=== PATIENT | female | born 1945 | race African-American/Black ===

== ENCOUNTER 2019-02-06 10:56 | Inpatient (IN) | payer OTHER, MEDICARE ==
[2019-02-06] VITALS (9 sets, daily range): BP systolic 134–161; BP diastolic 62–76
[~2019-02-06] VITALS: Ht 170.2 cm; Wt 78.5 kg
--- NOTE | 2019-02-06 10:56 | NUR ---
PT BIB EMS TO BED 8
[2019-02-06] MEDS ORDERED: ALBUTEROL 0.083% 2.5 MG/3 ML NEBU INH ONE (11:00)
[2019-02-06] MEDS ORDERED: ALBUTEROL SULFATE/IPRATROPIU 3 ML SOL IH ONE (11:00)
--- NOTE | 2019-02-06 11:20 | NUR ---
ABG DRAWN ON ROOM AIR. RESULTS GIVEN TO MD MCKEON. PT CURRENTLY ON BREATHING TREATMENT. WILL CONTINUE TO MONITOR.
--- NOTE | 2019-02-06 11:39 | NUR ---
73 YO F BIBA FOR SOB. WAS BEING TRANSFERRED FROM [facility] TO [place] AND PT BECAME UNRESPONSIVE WITH LABORED BREATHING. PT WAS BEING GIVEN O2 VIA NON REBREATHER. PT ONLY ABLE TO ANSWER IN SHORT ONE WORD PHRASES. CONNECTED TO THE MONITOR FOR CONTINOUS MONITORING. BREATHING TREATMENT ADMINISTERED BY RT UPON PT'S ARRIVAL TO ED. SIDERAILS UP X2 FOR SAFETY. WILL CONTINUE TO MONITOR CLOSELY.
[2019-02-06] MEDS ORDERED: VANCOMYCIN 1,000 MG in DEXTROSE 5% 250 ML IV ONE (11:40)
[2019-02-06] MEDS ORDERED: PIPERACILLIN/TAZOBACTAM 4.5 GM in DEXTROSE 5% 100 ML IV ONE (11:40)
--- NOTE | 2019-02-06 12:08 | NUR ---
PT ON BIPAP PER MD MCKEON ORDER. SETTINGS CHARTED. PT IS QUIET. BIPAP CONNECTED TO RED OUTLET. ALARMS AUDIBLE. PROTECTIVE GEL IS USED UNDER MASK FOR SKIN PROTECTION. WILL CONTINUE TO MONITOR.
[2019-02-06 12:11] LABS: BASOPHILS % (AUTO) 0.4 % (0.0-2.0); EOSINOPHILS # (AUTO) 0.1 K/uL (0-0.4); EOSINOPHILS % (AUTO) 0.4 % (0.0-4.0); HEMATOCRIT 25.6 % (36-48); HEMOGLOBIN 8.1 g/dL (12.0-16.0); LYMPHOCYTES % (AUTO) 7.8 % (20.5-51.1); MEAN CORPUSCULAR HEMOGLOBIN 26 pg (27-31); MEAN CORPUSCULAR HGB CONC 32 g/dL (33-37); MEAN CORPUSCULAR VOLUME 80.9 fL (80-94); MONOCYTES # (AUTO) 0.6 K/uL (0.8-1.0); MONOCYTES % (AUTO) 4.4 % (1.7-9.3); NEUTROPHILS # (AUTO) 10.9 K/uL (1.8-7.7); PLATELET COUNT (AUTO) 312 K/uL (140-450); RED BLOOD CELL COUNT(AUTO) 3.16 MIL/uL (4.20-5.40); RED CELL DISTRIBUTION WIDTH 19.7 % (11.6-13.7); WHITE BLOOD COUNT (AUTO) 12.5 K/uL (4.8-10.8)
[2019-02-06] MEDS ORDERED: PIPERACILLIN/TAZOBACTAM 2.25 GM VIAL IV ONE (12:23)
--- NOTE | 2019-02-06 12:34 | NUR ---
ZOZYN ABX INFUSING ORDERED BY .
[2019-02-06 12:39] LABS: PROTHROMBIN TIME 40.4 secs (10.8-13.4)
--- NOTE | 2019-02-06 12:40 | NUR ---
CRITICAL LABS RECEIVED: PT 40.4, INR 4.5, PTT 37.[address] REPORT[address] TO [address] MCKEON. TO SEE PT.
[2019-02-06 12:41] LABS: ANION GAP 14.5 (8-16); CARBON DIOXIDE 28.4 mmol/L (21-32); CHLORIDE 98 mmol/L (98-107); CREATININE 1.1 mg/dL (0.6-1.3); GLUCOSE 259 mg/dL (74-106); POTASSIUM 4.9 mmol/L (3.5-5.1); SODIUM SERUM 136 mmol/L (136-145); UREA NITROGEN, BLOOD 42 mg/dL (7-18)
[2019-02-06 12:47] LABS: ALBUMIN 2.9 g/dL (3.4-5.0); ASPARTATE AMINOTRANSFERASE 33 U/L (15-37); TOTAL BILIRUBIN 0.8 mg/dL (0.0-1.0)
--- NOTE | 2019-02-06 13:21 | NUR ---
PER MD MCKEON TO TITRATE FIO TOLERATED, WILL FOLLOW WITH ORDER. DECREASED FIO FROM 100% TO 80% NOW AT 60%
[2019-02-06] MEDS ORDERED: VANCOMYCIN 1,000 MG VIAL ONE (13:50)
[2019-02-06] MEDS ORDERED: ONDANSETRON 4 MG/2 ML VIAL IM/IVP PRN (14:15)
[2019-02-06] MEDS ORDERED: ACETAMINOPHEN 325 MG TAB PO PRN (14:15)
[2019-02-06] MEDS ORDERED: HYDROcodone/APAP 7.5/325 MG 1 TAB PO PRN (14:15)
[2019-02-06] MEDS ORDERED: DOCUSATE SODIUM 100 MG GELCAP PO PRN (14:15)
[2019-02-06 15:17] LABS: APPEARANCE,URINE CLEAR (CLEAR); BILIRUBIN,URINE NEGATIVE (NEGATIVE); BLOOD, URINE NEGATIVE (NEGATIVE); COLOR,URINE YELLOW (YELLOW); LEUKOCYTE ESTERASE ,URINE NEGATIVE (NEGATIVE); NITRITE, URINE NEGATIVE (NEGATIVE); UGLUCOSE NEGATIVE (NEGATIVE)
[2019-02-06 15:26] LABS: BARBITURATE, URINE NEG. ng/ml (NEG <=200); BENZODIAZEPINE, URINE NEG. ng/mL (NEG <=200); CANNABINOID, URINE NEG. ng/mL (NEG <=50); COCAINE, URINE NEG. ng/mL (NEG <=300); OPIATE, URINE NEG. ng/mL (NEG <=2000); PHENCYCLIDINE SCREEN,URINE NEG. ng/mL (NEG <=25)
[2019-02-06] MEDS ORDERED: ATOR40TA PO (15:49)
[2019-02-06] MEDS ORDERED: ALBU2.5V IH (15:49)
[2019-02-06] MEDS ORDERED: BISA-213 RC (15:49)
[2019-02-06] MEDS ORDERED: AMLO5TAB PO (15:49)
[2019-02-06] MEDS ORDERED: ACET-2619 PO (15:49)
[2019-02-06] MEDS ORDERED: LATA7.5D OP (15:49)
[2019-02-06] MEDS ORDERED: SOTA80TA PO (15:49)
[2019-02-06] MEDS ORDERED: FURO-572 PO (15:49)
[2019-02-06] MEDS ORDERED: NITR0.4T2 SL (15:49)
[2019-02-06] MEDS ORDERED: LISI10TA11 PO (15:49)
[2019-02-06] MEDS ORDERED: ATRN INH (15:49)
[2019-02-06] MEDS ORDERED: DOCU-299 PO (15:49)
[2019-02-06] MEDS ORDERED: HYDR100T79 PO (15:49)
[2019-02-06] MEDS ORDERED: LID5T TP (15:49)
[2019-02-06] MEDS ORDERED: WARF-18 PO (15:49)
[2019-02-06] MEDS ORDERED: WARF2.5T77 PO (15:49)
[2019-02-06] MEDS ORDERED: MAGN400S60 PO (15:49)
--- NOTE | 2019-02-06 16:00 | NUR ---
RECEIVED PATIENT VIA GURNEY, TRANSFERRED TO ICU BED AND HOOKED TO MONITORS ON BIPAP FIO2 60%, SO2 95%, RR 24 CPM, ALERT ORIENTED TO PERSON, PLACE, TIME, SITUATION. SINUS BRADYCARDIA IN THE MONITOR, SOFT ABDOMEN, SKIN INTACT, GAUGE 24 AT RIGHT THUMB-SITE ASYMPTOMATIC
--- NOTE | 2019-02-06 16:08 | NUR ---
TRANSFERRED PT FROM ED TO ICU WITH NO INCIDENT. PT CONTINUES TO BE ON BIPAP.SETTINGS CHARTED. BIPAP CONNECTED TO RED OUTLET. ALARMS AUDIBLE. MASK MEDIUM WITH PROTECTIVE GEL. WILL CONTINUE TO MONITOR.
--- NOTE | 2019-02-06 16:27 | NUR ---
PT was transferred to ICU Bed 1 report given to YAEL Bernstein. Transferred care at 1558. pt was in stable condition.
--- NOTE | 2019-02-06 16:40 | NUR ---
DR. HOWELL HERE AND EXPLAINED TO THE PATIENT AND HER DAUGHTER KEYANA THAT PICC LINE NURSE WILL INSERT MIDLINE ON HER. DR. HOWELL EXPLAINED THE RISKS AND BENEFITS. DR. HOWELL AWARE OF TODAY'S LABORATORY VALUES. PATIENT AND DAUGHTER CONSENTED TO SAID PROCEDURE
--- NOTE | 2019-02-06 16:45 | NUR ---
ICU ISMAEL WYATT AND PICC YAEL PACHECO REVIEWED THE SIGNED CONSENT FOR MIDLINE
[2019-02-06] MEDS ORDERED: ALBUTEROL SULFATE/IPRATROPIU 3 ML SOL IH PRN (17:05)
[2019-02-06] MEDS ORDERED: FUROSEMIDE 40 MG/4 ML VIAL IVP SCH (17:15)
[2019-02-06] MEDS: DEXT 5% /NACL 0.9% 1,000 ML IV SCH (17:26)
[2019-02-06] MEDS: hydrALAZINE 10 MG TAB PO SCH (17:27)
[2019-02-06 17:28] LABS: FREE T4 (FREE THYROXINE) 1.38 ng/dL (0.76-1.46); MAGNESIUM 2.3 mg/dL (1.8-2.4); PHOSPHORUS 4.8 mg/dL (2.5-4.9); THYROID STIMULATING HORMONE 2.93 uIU/mL (0.34-3.74)
--- NOTE | 2019-02-06 17:28 | NUR ---
IRIS SCORE PER PATIENT'S DAUGHTER KEYANA. PATIENT WALKS WITH WALKER PRIOR TO COMING HERE
--- NOTE | 2019-02-06 17:44 | NUR ---
MIDLINE INSERTION ONGOING
--- NOTE | 2019-02-06 18:04 | NUR ---
PER JUNIOR CONLEY OK TO USE MIDLINE
--- NOTE | 2019-02-06 18:46 | NUR ---
CALLED [facility] AND SPOKE TO PATIENT'S PREVIOUS RN BLESSING AND ACCORDING TO HER THEY DON'T HAVE A RECORD OF PATIENT'S FLU AND PNEUMONIA SHOT. PATIENT AND HER DAUGHTER BOTH CANNOT REMEMBER IT
[2019-02-06] MEDS: ALBUTEROL SULFATE/IPRATROPIU 3 ML SOL IH SCH (18:55)
--- NOTE | 2019-02-06 19:20 | NUR ---
RECEIVED REPORT FROM AM SHIFT. PT AOX2. FOLLOWS SIMPLE COMMANDS. RESPONDS TO VERBAL AND TACTILE STIMULI.EYES TRACKING. ABLE TO MAKE NEEDS KNOWN. LUNG SOUNDS CLEAR BILAT. ON BIPAP 12/6 FIO2 60. NO COUGH. SB ON MONITOR. DENIES CHEST PAIN. BOWEL SOUNDS ACTIVE X 4 QUADRANTS. ABD SOFT NONDISTENDED. NPO EXCEPT MEDS AT THIS TIME. CONTINENT OF URINE. URINE CLEAR YELLOW NO FOUL ODOR. GENERALIZED WEAKNESS NOTED. SKIN INTACT. IV SITE R THUMB 24G. DRESSING INTACT. RUE MIDLINE DRESSING INTACT. PATENT. HOB 30. BED IN LOWEST POSITION. SR UP X4. WILL CONTINUE TO MONITOR.
--- NOTE | 2019-02-06 19:26 | NUR ---
REPORT GIVEN TO NIGHT RN ENDORSED PAIR OF GLASSES AND UPPER DENTURES
[2019-02-06] MEDS: FUROSEMIDE 20 MG/2 ML VIAL IVP SCH (20:36)
[2019-02-06] MEDS: PIPER/TAZO 3.375GM/D5W PREMIX 50 ML IV SCH (20:36)
[2019-02-06] MEDS: LATANOPROST 0.005% OP 2.5 ML BTL BOTH EYES SCH (20:36)
[2019-02-06] MEDS: ATORVASTATIN 20 MG TAB PO SCH (20:36)
[2019-02-06] MEDS ORDERED: SOTALOL 80 MG TAB PO SCH (21:00)
--- NOTE | 2019-02-06 21:45 | NUR ---
PT AGITATED. RESTLESS. PULLING OFF BIPAP TUBE. GIVEN BENADRYL IVP AT THIS TIME
[2019-02-06] MEDS ORDERED: diphenhydrAMINE 50 MG/ML VIAL IVP SCH (22:00)
--- NOTE | 2019-02-06 22:03 | NUR ---
PT ON BIPAP. SETTINGS OF 12/6, 12, 60%. BIPAP CONNECTED TO RED OUTLET. ALARMS AUDIBLE. MASK MEDIUM WITH PROTECTIVE GEL. NO DISTRESS OR SOB NOTED AT THIS TIME.
[2019-02-06] MEDS ORDERED: LORazepam 2 MG/ML VIAL IVP ONE (23:10)
--- NOTE | 2019-02-06 23:18 | NUR ---
PT AGITATED AT THIS TIME. PULLING OUT TUBE. PULLED OUT PERIPHERAL IV 24G ON THUMB. CANNULA INTACT. WILL ADMINISTER ATIVAN 1MG IVP.
[2019-02-07] VITALS (33 sets, daily range): BP systolic 9–156; BP diastolic 43–144
--- NOTE | 2019-02-07 01:15 | NUR ---
PT RESTLESS AT THIS TIME PULLING ON TUBES AND UNDRESSING. PT CLEANED AT REPOSITIONED. WILL CONTINUE TO MONITOR.
--- NOTE | 2019-02-07 03:14 | NUR ---
PT RESTLESS AT THIS TIME. REORIENTED PT TO LOCATION.
--- NOTE | 2019-02-07 04:11 | NUR ---
AM CARE PROVIDED AT THIS TIME
[2019-02-07] MEDS: PIPER/TAZO 3.375GM/D5W PREMIX 50 ML IV SCH ×3 (04:38→20:11)
[2019-02-07] MEDS: LORazepam 2 MG/ML VIAL IVP PRN ×2 (04:38→11:32)
--- NOTE | 2019-02-07 04:38 | NUR ---
LAB AT BEDSIDE AT THIS TIME FOR AM CARE
[2019-02-07] MEDS ORDERED: LORazepam 2 MG/ML VIAL ONE (04:40)
--- NOTE | 2019-02-07 06:19 | NUR ---
DR. HOWELL AT BEDSIDE AT THIS TIME
[2019-02-07 06:36] LABS: BASOPHILS % (AUTO) 0.4 % (0.0-2.0); EOSINOPHILS % (AUTO) 0.2 % (0.0-4.0); HEMATOCRIT 25.5 % (36-48); HEMOGLOBIN 8.2 g/dL (12.0-16.0); LYMPHOCYTES % (AUTO) 10.7 % (20.5-51.1); MEAN CORPUSCULAR HEMOGLOBIN 26 pg (27-31); MEAN CORPUSCULAR HGB CONC 32 g/dL (33-37); MEAN CORPUSCULAR VOLUME 80.7 fL (80-94); MONOCYTES # (AUTO) 0.5 K/uL (0.8-1.0); MONOCYTES % (AUTO) 5.7 % (1.7-9.3); NEUTROPHILS # (AUTO) 7.5 K/uL (1.8-7.7); PLATELET COUNT (AUTO) 295 K/uL (140-450); RED BLOOD CELL COUNT(AUTO) 3.16 MIL/uL (4.20-5.40); RED CELL DISTRIBUTION WIDTH 19.8 % (11.6-13.7); WHITE BLOOD COUNT (AUTO) 9.1 K/uL (4.8-10.8)
[2019-02-07 06:37] LABS: ANION GAP 11.9 (8-16); CARBON DIOXIDE 30.2 mmol/L (21-32); CHLORIDE 103 mmol/L (98-107); GLUCOSE 195 mg/dL (74-106); POTASSIUM 4.1 mmol/L (3.5-5.1); SODIUM SERUM 141 mmol/L (136-145); UREA NITROGEN, BLOOD 33 mg/dL (7-18)
[2019-02-07 06:43] LABS: PROTHROMBIN TIME 53.5 secs (10.8-13.4)
[2019-02-07 06:45] LABS: MAGNESIUM 2.1 mg/dL (1.8-2.4); PHOSPHORUS 4.1 mg/dL (2.5-4.9)
--- NOTE | 2019-02-07 07:08 | NUR ---
ENDORSED CARE TO INCOMING SHIFT FOR CONTINUITY OF CARE.
--- NOTE | 2019-02-07 07:25 | NUR ---
RECEIVED REPORT FROM PM SHIFT. PT AOX1. DOES NOT FOLLOW COMMANDS. UNABLE TO MAKE NEEDS KNOWN. RESPONDS TO VERBAL AND TACTILE STIMULI. PERRLA 5MM RIGHT PUPIL, 5MM LEFT PUPIL. EYES TRACKING. LUNG SOUNDS EQUAL AND CLEAR BILAT. ON BIPAP 10/4 FIO2 40. NO COUGH. NSR ON MONITOR. PALPABLE PULSES, ALL EXTREMITIES. BOWEL SOUNDS HYPOACTIVE X 4 QUADRANTS. ABD SOFT NONDISTENDED. NPO EXCEPT MEDS AT THIS TIME, REQUIRES CRUSHING. INCONTINENT OF URINE. URINE CLEAR YELLOW NO FOUL ODOR. FECAL SMEAR NOTED. GENERALIZED WEAKNESS NOTED. SKIN INTACT. DRY AND WARM TO TOUCH. LIPS DRY, CRACKED. RUE MIDLINE DRESSING INTACT, PATENT, FLUSHED. HOB 30. BED IN LOWEST POSITION. WILL CONTINUE TO MONITOR.
[2019-02-07] MEDS: ALBUTEROL SULFATE/IPRATROPIU 3 ML SOL IH SCH ×4 (08:03→23:07)
--- NOTE | 2019-02-07 08:03 | NUR ---
RCV'D PT ON BIPAP WITH CHARTED SETTINGS. PT IS ASLEEP COMFORTABLY. NO SOB OR DISTRESS NOTED. BIPAP CONNECTED TO RED OUTLET. ALARMS AUDIBLE. AMBU BAG AT BEDSIDE. WILL CONTINUE TO MONITOR.
--- NOTE | 2019-02-07 08:08 | NUR ---
PATIENT HAS BEEN SCREENED AND CATEGORIZED HIGH NUTRITION RISK. PATIENT WILL BE SEEN WITHIN 1-2 DAYS OF ADMISSION. 02/07/19-02/08/[address]
[2019-02-07 08:27] LABS: T4 (THYROXINE) 8.7 ug/dL (4.5-12.0)
[2019-02-07] MEDS: FUROSEMIDE 20 MG/2 ML VIAL IVP SCH (08:59)
[2019-02-07] MEDS ORDERED: FUROSEMIDE 20 MG TAB PO SCH (09:00)
--- NOTE | 2019-02-07 09:00 | NUR ---
GAVE MEDICATIONS PRESCRIBED, MEDICATIONS REQUIRED CRUSHING WITH APPLESAUCE FOR ADMINISTRATION Addendum: 02/07/19 at 1114 by Ernie Sinclair RN PT TOLERATED WELL.
[2019-02-07] MEDS: SOTALOL 80 MG TAB PO SCH ×2 (09:01→21:00)
[2019-02-07] MEDS: LISINOPRIL 10 MG TAB PO SCH (09:02)
[2019-02-07] MEDS: amLODIPine 5 MG TAB PO SCH (09:02)
[2019-02-07] MEDS: hydrALAZINE 10 MG TAB PO SCH ×4 (09:03→16:40)
--- NOTE | 2019-02-07 09:20 | NUR ---
DR. HOWELL MADE AWARE THAT MEDICATIONS REQUIRED CRUSHING WITH APPLESAUCE FOR ADMINISTRATION
--- NOTE | 2019-02-07 09:54 | NUR ---
DECREASED PT'S FIO2 TO 40% SPO2 96% WILL CONTINUE TO MONITOR.
--- NOTE | 2019-02-07 10:00 | NUR ---
[facility]O UNDERWEAR WELTER CALL TO CHECK OUT PT. CONDITION PT STILL ON BIPAP FIO2 AT 40% and restless and confuse SHE SAID PT. STILL UNABLE TO TRANSFER AT THIS TIME.
--- NOTE | 2019-02-07 11:05 | NUR ---
DR. HOWELL AT BEDSIDE WITH DAUGHTER DISCUSSING PT'S STATUS AND CONDITION.
[2019-02-07] MEDS: DEXT 5% /NACL 0.9% 1,000 ML IV SCH (11:41)
--- NOTE | 2019-02-07 11:42 | NUR ---
BIPAP CHECK. DAUGHTER AT BEDSIDE. PT IS IRRITABLE. RN AWARE AND AT BEDSIDE. NO DISTRESS NOTED. DECREASED FIO2 TO 30%. PT'S SPO2 IS 98% . RN AWARE. WILL CONTINUE TO MONITOR.
--- NOTE | 2019-02-07 13:06 | NUR ---
02/07/19 RD INITIAL ASSESSMENT COMPLETED PLEASE REFER TO NUTRITION ASSESSMENT UNDER CARE ACTIVITY FOR ESTIMATED NUTRITIONAL NEEDS. 1. CONTINUE NPO MEDICALLY NECESSARY 2. RECOMMEND SWALLOW EVALUATION 3. RECOMMEND CARDIAC DIET WITH TEXTURE AND LIQUID CONSISTENCY SUGGESTED BY SWALLOW EVALUATION 4. RD TO FOLLOW-UP 2-3 DAYS, HIGH RISK GRIS CARRERO, ARABELLA
--- NOTE | 2019-02-07 13:30 | NUR ---
PATIENT INCONTINENT. PATIENT CLEANED AND REPOSITIONED. PT TOLERATED WELL.
--- NOTE | 2019-02-07 13:33 | NUR ---
BIPAP CHECK. PT TOLERATING WELL. PT ASLEEP COMFORTABLY. DAUGHTER AT BEDSIDE. HHN TX GIVEN WITH NO ADVERSE REACTION. WILL CONTINUE TO MONITOR.
--- NOTE | 2019-02-07 13:45 | NUR ---
DR. RODRIGEZ AT BEDSIDE CHECKING ON PT. DR. RODRIGEZ SPEAKING WITH FAMILY MEMBER ABOUT PT'S PROGRESS. Addendum: 02/07/19 at 1555 by Ernie Sinclair RN WRONG TIME, CORRECT TIME IS 1545
--- NOTE | 2019-02-07 14:15 | NUR ---
PATIENT ATTEMPTING TO GET OUT OF BED. REORIENTED AND REPOSITIONED. SAFETY PRECAUTIONS IN PLACE.
--- NOTE | 2019-02-07 14:55 | NUR ---
ECHOCARDIOGRAM WIRE CUTTER AT BEDSIDE. PT'S VITAL SIGNS ARE STABLE. NO SIGNS OF DISTRESS. WILL CONTINUE TO MONITOR.
--- NOTE | 2019-02-07 15:03 | NUR ---
LATE ENTRY. CALLED [facility], . WAS TOLD THAT THE CM FOR TODAY WAS ANNALISA. I ASKED THAT SHE CALL ME BACK, NO CALL BACK. I SPOKE WITH DR. HOWELL. PATIENT NOT STABLE FOR TRANSFER TODAY.
--- NOTE | 2019-02-07 16:01 | NUR ---
DR RODRIGEZ AT BEDSIDE. ORDERED HIGH FLOW. HIGH FLOW STARTED. SETTINGS PER MD RODRIGEZ FLOW 20 FIO2 35%.
--- NOTE | 2019-02-07 16:32 | NUR ---
ABG DRAWN AND RESULTS GIVEN TO MD RODRIGEZ AT BEDSIDE. PER MD RODRIGEZ INCREASE FLOW TO 50 FIO2 TO 50%. CHANGES DONE.
--- NOTE | 2019-02-07 16:40 | NUR ---
PT IS LETHARGIC AT THIS TIME. UNABLE TO SWALLOW CRUSHED MEDS MIXED WITH APPLE SAUCE. DR. RODRIGEZ MADE AWARE. PER DR. RODRIGEZ, DO NOT GIVE ANY PO MEDS AT THIS TIME.
--- NOTE | 2019-02-07 16:50 | NUR ---
PT LETHARGIC. MD RODRIGEZ AT BEDSIDE.
--- NOTE | 2019-02-07 17:00 | NUR ---
ETOMIDATE [address] RODRIGEZ'S ORDER.
--- NOTE | 2019-02-07 17:00 | NUR ---
INTUBATED PT WITH 7.5 ETT AT 24 CM AT TEETH. CONFIRMED BY BREATH SOUNDS BY MD RODRIGEZ AND COLOR CHANGE. VENT SETTINGS AC 16,450,+5,100%. WILL TITRATE FOP2 TOLERATED
--- NOTE | 2019-02-07 17:02 | NUR ---
PT INTUBATED AT BEDSIDE BY DR. RODRIGEZ.
--- NOTE | 2019-02-07 17:02 | NUR ---
ROCURONIUM 20MG GIVEN PRIOR TO INTUBATION PER DR. RODRIGEZ'S ORDER.
[2019-02-07] MEDS ORDERED: PHYTONADIONE 10 MG/ML AMP SUBQ SCH (17:15)
--- NOTE | 2019-02-07 17:20 | NUR ---
YIN CATHETER AND OGT INSERTED. PT TOLERATED WELL.
--- NOTE | 2019-02-07 17:45 | NUR ---
ANNALISA FROM [facility] [phone] [facility] CALL TO CHECK ON PATIENT.INFORM HER THAT PT. HAS BEEN INTUBATED BY DR. RODRIGEZ , HAVE HER TALK TO DR. RODRIGEZ AND BOTH AGREE THAT THE PATIENT IS NOT STABLE TO BE TRANSFER TO DAY.
[2019-02-07] MEDS ORDERED: MIDAZOLAM 2 MG/2 ML VIAL IV SCH (18:00)
--- NOTE | 2019-02-07 18:14 | NUR ---
BRONCHOSCOPY DONE BY MD RODRIGEZ AT BEDSIDE. RT BLANCA AT BEDSIDE WELL. SPUTUM SAMPLE COLLECTED AND SENT TO LAB. PT ON VENTILATOR INTUBATED WITH 7.5 AT 23 CM AT LIP. XRAY AT BEDSIDE. VENT CONNECTED TO RED OUTLET. ALARMS AUDIBLE. AMBU BAG AT BEDSIDE. NO SOB OR DISTRESS NOTED AFTER INTUBATION. PT IS COMFORTABLE.
--- NOTE | 2019-02-07 18:15 | NUR ---
CHEST X-RAY AND KUB DONE AT BEDSIDE. VSS. WILL CONTINUE TO MONITOR.
--- NOTE | 2019-02-07 18:17 | NUR ---
VERIFIED PT'S ALLERGIES TO PT'S DAUGHTERS. PER DAUGHTERSKEYANA AND AURY AT BEDSIDE, PT DOES NOT HAVE ANY ALLERGIES.
[2019-02-07] MEDS: MIDAZOLAM MDV 50 MG in NACL 0.9% 40 ML IV PRN (18:22)
[2019-02-07] MEDS: fentaNYL 1 MG in NACL 0.9% 80 ML IV PRN (18:29)
--- NOTE | 2019-02-07 18:50 | NUR ---
CONSENT OBTAINED FROM DAUGHTERS KEYANA AND AURY FOR SOFT WRIST RESTRAINT USE.
--- NOTE | 2019-02-07 19:09 | NUR ---
OBTAINED REPORT FROM AM SHIFT. ASSUMED CONTINUITY OF CARE. PT. AFEBRILE. SEDATED. RASS -3. MODERATE SEDATION. RESPONDS TO TACTILE STIMULI. ETT TO VENT 23 @ LIP. VENT SETTINGS VC FIO2 50 VT 450 RATE 16 PEEP 5. ON FENTANYL 10MCG AND VERSED 2MG DRIP. AFIB ON MONITOR. NO EDEMA NOTED. BOWEL SOUNDS ACTIVE X4 QUADRANTS OGT IN PLACE. PATENT, AUSCULTATED. NO RESIDUAL NOTED. YIN CATHETER IN PLACE. URINE CLEAR YELLOW. ON BILATERAL SOFT WRIST RESTRAINTS. MIDLINE TO MARY. PATENT INTACT. BED IN LOWEST POSITION. HOB 30. WILL CONTINUE TO MONITOR. FAMILY AT BEDSIDE
--- NOTE | 2019-02-07 19:16 | NUR ---
1900 ET TUBE PULLED BACK 2.5 CM TO LIP LINE 23
--- NOTE | 2019-02-07 19:19 | NUR ---
REPORT GIVEN TO MIDDLE SCHOOL COMBINATION TEACHER RN FOR CONTINUITY OF CARE. NO SIGNS OF DISTRESS NOTED AT THIS TIME.
--- NOTE | 2019-02-07 19:57 | NUR ---
POST ABG. LOWERED FIO2 TO 50%
[2019-02-07] MEDS: LATANOPROST 0.005% OP 2.5 ML BTL BOTH EYES SCH (20:11)
[2019-02-07] MEDS: BUDESONIDE 0.25 MG/2 ML NEBU INH SCH (20:18)
[2019-02-07] MEDS: ATORVASTATIN 20 MG TAB PO SCH (21:00)
--- NOTE | 2019-02-07 21:24 | NUR ---
1919 SPUTUM CULTURE UPTAINED AND TAKEN TO LAB
--- NOTE | 2019-02-07 21:48 | NUR ---
RADIOLOGY AT BEDSIDE FOR CXR AND KUB
--- NOTE | 2019-02-07 22:16 | NUR ---
RT AT BEDSIDE AT THIS TIME.
[2019-02-08] VITALS (104 sets, daily range): BP systolic 89–142; BP diastolic 47–94
--- NOTE | 2019-02-08 01:36 | NUR ---
LOWERED FIO2 TO 40%
--- NOTE | 2019-02-08 02:15 | NUR ---
PT REMOVED FROM RESTRAINTS AT THIS TIME. WILL REAPPLY IF NECESSARY.
[2019-02-08] MEDS: MIDAZOLAM MDV 50 MG in NACL 0.9% 40 ML IV PRN ×2 (02:16→21:20)
[2019-02-08] MEDS: ALBUTEROL SULFATE/IPRATROPIU 3 ML SOL IH SCH ×6 (03:05→23:32)
--- NOTE | 2019-02-08 03:14 | NUR ---
OGT MOVED. REINSERTED NEW OG TUBE.
--- NOTE | 2019-02-08 03:14 | NUR ---
LOWERED FIO2 TO 30% SATS 99%
--- NOTE | 2019-02-08 03:41 | NUR ---
NOTIFIED DR. ANGLIN REGARDING XRAY FOR OGT PLACEMENT
[2019-02-08] MEDS: PIPER/TAZO 3.375GM/D5W PREMIX 50 ML IV SCH ×3 (04:24→21:03)
--- NOTE | 2019-02-08 04:53 | NUR ---
AM CARE PROVIDED AT THIS TIME. NO SIGNS ACUTE DISTRESS NOTED. WILL CONTINUE TO MONITOR.
[2019-02-08] MEDS: BUDESONIDE 0.25 MG/2 ML NEBU INH SCH ×2 (06:55→18:36)
--- NOTE | 2019-02-08 07:02 | NUR ---
RECEIVED INTUBATED PT WITH A 7.5 ETT SECURED @22 TEETH/GUMS ON VENT. SETTINGS AC 16, VT 450, PEEP 5 AND FIO2 30%. ETT IS SECURE WITH ANCHOR FAST DEVICE, AIRWAY IS PATENT. PT SEDATED AT THIS TIME BUT HAS ACTIVE GAG REFLEX. PT SUCTIONED OBTAINED BLOOD TINGED/YELLOW SECRETIONS. VENT IS PLUGGED INTO A RED OUTLET WITH ALARMS ON AND FUNCTIONING. THERE IS NO BITING OR KINKING OF ETT. WILL CONTINUE TO MONITOR.
[2019-02-08 07:07] LABS: BASOPHILS % (AUTO) 0.7 % (0.0-2.0); EOSINOPHILS # (AUTO) 0.1 K/uL (0-0.4); EOSINOPHILS % (AUTO) 1.3 % (0.0-4.0); HEMATOCRIT 22.9 % (36-48); HEMOGLOBIN 7.3 g/dL (12.0-16.0); LYMPHOCYTES # (AUTO) 1.4 K/uL (2.5-16.5); MEAN CORPUSCULAR HEMOGLOBIN 26 pg (27-31); MEAN CORPUSCULAR HGB CONC 32 g/dL (33-37); MEAN CORPUSCULAR VOLUME 81.7 fL (80-94); MONOCYTES # (AUTO) 0.3 K/uL (0.8-1.0); MONOCYTES % (AUTO) 7.3 % (1.7-9.3); NEUTROPHILS % (AUTO) 61.7 % (42.2-75.2); PLATELET COUNT (AUTO) 235 K/uL (140-450); RED CELL DISTRIBUTION WIDTH 20.1 % (11.6-13.7); WHITE BLOOD COUNT (AUTO) 4.8 K/uL (4.8-10.8)
--- NOTE | 2019-02-08 07:11 | NUR ---
ENDORSED CARE TO INCOMING SHIFT FOR CONTINUITY OF CARE
--- NOTE | 2019-02-08 07:25 | NUR ---
BEDSIDE REPORT RECEIVED FROM TRISTON RN FOR CONTINUITY OF CARE. PATIENT IN STABLE CONDITION. Addendum: 02/08/19 at 0911 by Migdalia Gatica RN PATIENT IS SEDATED WITH FERSED AND PROPOFOL DRIPS. ETT 7.5 AT 22CM, FIO2 30%, TV 450, RATE 16 AND PEEP 5. OGT IN PLACE WAITING FOR XRAY CONFIRMATION. FC 16FR PATENT AND INTACT TO CLEAR YELLOW URINE IN MODERATE AMOUNT. SMALL BM TO BROWN PASTY STOOLS NOTED. SKIN WARM TO TOUCH WNL, TOENAILS WNL, NO EDEMA, NO HAIR GROWTH AND +2 BILATERAL PULSES. CLEAR BILATERAL LUNG SOUNDS. MARY MIDLINE PATENT AND INTACT. CALL LIGHT WITHIN REACH AND ALL SAFETY MEASURES IN PLACE. WILL CONTINUE TO MONITOR PATIENT.
[2019-02-08 07:48] LABS: ANION GAP 11.8 (8-16); CARBON DIOXIDE 30.5 mmol/L (21-32); CHLORIDE 107 mmol/L (98-107); CREATININE 0.9 mg/dL (0.6-1.3); GLUCOSE 171 mg/dL (74-106); POTASSIUM 3.3 mmol/L (3.5-5.1); SODIUM SERUM 146 mmol/L (136-145); UREA NITROGEN, BLOOD 23 mg/dL (7-18)
--- NOTE | 2019-02-08 07:50 | NUR ---
DR LÓPEZ AND GROUP ROUNDING, UPDATED OF PATIENT'S CONDITION. MADE AWARE OF PATIENTS' TEMP OF 94.9 RECTALLY AND 95.7 TEMPORAL. VINCE CASANDRAER PLACED. WILL FOLLOW UP WITH ORDERS.
[2019-02-08 08:09] LABS: PROTHROMBIN TIME 60.1 secs (10.8-13.4)
--- NOTE | 2019-02-08 08:12 | NUR ---
DR ACE MADE AWARE OF PATIENT'S PT/INR 60.1/6.7, WILL SEE PATIENT.
[2019-02-08 08:18] LABS: MAGNESIUM 1.9 mg/dL (1.8-2.4); PHOSPHORUS 2.6 mg/dL (2.5-4.9)
--- NOTE | 2019-02-08 08:54 | NUR ---
DR. ACE MADE AWARE OF PATIENT'S H/H 7.3/22.9 AND NA/K 146/3.3. WILL FOLLOW UP WITH ORDERS
[2019-02-08] MEDS: amLODIPine 5 MG TAB PO SCH (09:00)
[2019-02-08] MEDS: hydrALAZINE 10 MG TAB PO SCH ×3 (09:00→17:00)
[2019-02-08] MEDS: LISINOPRIL 10 MG TAB PO SCH (09:00)
[2019-02-08] MEDS: SOTALOL 80 MG TAB PO SCH ×2 (09:00→20:56)
[2019-02-08] MEDS ORDERED: POTASSIUM CHLORIDE 20% 40 MEQ/15 ML UDC GT SCH (10:18)
--- NOTE | 2019-02-08 10:42 | NUR ---
SPEECH PATHOLOGY NOTE Order for bedside swallow eval received, chart reviewed. Pt remains intubated, on mech ventilation. Will hold swallow eval order at this time until approx 24 hrs POST EXTUBATION. D/w dinag automobile club information clerk. Thank you.
--- NOTE | 2019-02-08 11:15 | NUR ---
FIO2 TITRATED TO 35% PER REQUEST OF . SPO2 REMAINS ABOVE 92% ORDER REQUESTS.
--- NOTE | 2019-02-08 11:21 | NUR ---
PER DR. AEC HOLD ALL BP MEDS FOR NOW
[2019-02-08] MEDS ORDERED: POTASSIUM CHLORIDE 20% 40 MEQ/15 ML UDC ONE (12:01)
--- NOTE | 2019-02-08 15:49 | NUR ---
CORA FROM [facility] CALLED TO GET UPDATE ON PATIENT. SHE STATED WILL LET HER DOC KNOW AND WILL CALL ME BACK.
[2019-02-08] MEDS ORDERED: PUL.25N INH (16:49)
[2019-02-08] MEDS ORDERED: APR10 PO (16:49)
[2019-02-08] MEDS ORDERED: ZOS3.375PM IV (16:50)
--- NOTE | 2019-02-08 17:41 | NUR ---
PT REMAINS ON DOCUMENTED VENT SETTINGS. PT NOT IN ANY DISTRESS AT THIS TIME. VENT ALARMS REMAIN ON AND FUNCTIONING. ETT REMAINS SECURE WITH A PATENT AIRWAY.
[2019-02-08] MEDS: DEXT 5% /NACL 0.9% 1,000 ML IV SCH (18:11)
--- NOTE | 2019-02-08 18:58 | NUR ---
DR ALDEN MELO UPDATED OF PATIENT'S CONDITION. MADE AWARE OF PATIENT'S URINE OUTPUT OF 300ML, WILL CONTINUE TO MONITOR PATIENT.
--- NOTE | 2019-02-08 19:20 | NUR ---
BEDSIDE REPORT GIVEN TO NOC RN FOR CONTINUITY OF CARE. PATIENT IN STABLE CONDITION
--- NOTE | 2019-02-08 19:30 | NUR ---
RECEIVED REPORT FROM YAEL SONG. INITIAL ASSESSMENT COMPLETED. PT IS SEDATED. ETT TO VENT FIO2 35% TV 450 AC 16 PEEP 5. ATTACHED TO FIBERGLASS ROVING WINDER AND PULSE OXIMETER. OGT IN PLACE ATTACHED TO FEEDING, PATENT, INTACT. IV ACCESS MARY MIDLINE, ON FENTANYL, AND VERSED DRIP. YIN CATH IN PLACE. BED IN LOW POSITION, SAFETY MEASURE ENSURE. WILL CONTINUE TO MONITOR.
--- NOTE | 2019-02-08 20:00 | NUR ---
RESTRAINT DISCONTINUED PER DR. RUANO. WILL CONTINUE TO MONITOR.
--- NOTE | 2019-02-08 20:54 | NUR ---
PER DR. RUANO HOLD BETAPACE AT THIS TIME. HR 84, BP 129/80 RR 16 O2 SAT 100%. WILL CONTINUE TO MONITOR.
[2019-02-08] MEDS: ATORVASTATIN 20 MG TAB PO SCH (21:03)
[2019-02-08] MEDS: LATANOPROST 0.005% OP 2.5 ML BTL BOTH EYES SCH (21:18)
[2019-02-09] VITALS (106 sets, daily range): BP systolic 106–155; BP diastolic 44–100
--- NOTE | 2019-02-09 00:10 | NUR ---
NO DISTRESS NOTED. WILL CONTINUE TO MONITOR.
[2019-02-09] MEDS: ALBUTEROL SULFATE/IPRATROPIU 3 ML SOL IH SCH ×6 (03:48→22:45)
[2019-02-09] MEDS: PIPER/TAZO 3.375GM/D5W PREMIX 50 ML IV SCH ×3 (04:35→20:13)
[2019-02-09] MEDS ORDERED: PHYTONADIONE 10 MG/ML AMP SUBQ ONE (05:10)
[2019-02-09 05:47] LABS: BASOPHILS % (AUTO) 0.5 % (0.0-2.0); EOSINOPHILS # (AUTO) 0.1 K/uL (0-0.4); EOSINOPHILS % (AUTO) 1.2 % (0.0-4.0); HEMATOCRIT 25.5 % (36-48); HEMOGLOBIN 8.2 g/dL (12.0-16.0); LYMPHOCYTES # (AUTO) 1.3 K/uL (2.5-16.5); LYMPHOCYTES % (AUTO) 20.2 % (20.5-51.1); MEAN CORPUSCULAR HEMOGLOBIN 26 pg (27-31); MEAN CORPUSCULAR HGB CONC 32 g/dL (33-37); MEAN CORPUSCULAR VOLUME 81.1 fL (80-94); MONOCYTES # (AUTO) 0.4 K/uL (0.8-1.0); MONOCYTES % (AUTO) 6.1 % (1.7-9.3); NEUTROPHILS # (AUTO) 4.5 K/uL (1.8-7.7); PLATELET COUNT (AUTO) 246 K/uL (140-450); RED BLOOD CELL COUNT(AUTO) 3.15 MIL/uL (4.20-5.40); RED CELL DISTRIBUTION WIDTH 20.6 % (11.6-13.7); WHITE BLOOD COUNT (AUTO) 6.2 K/uL (4.8-10.8)
[2019-02-09] MEDS: NACL 0.45% 1,000 ML IV SCH (06:13)
[2019-02-09 06:29] LABS: ANION GAP 12.6 (8-16); CARBON DIOXIDE 28.2 mmol/L (21-32); CHLORIDE 109 mmol/L (98-107); CREATININE 1.1 mg/dL (0.6-1.3); GLUCOSE 166 mg/dL (74-106); POTASSIUM 3.8 mmol/L (3.5-5.1); SODIUM SERUM 146 mmol/L (136-145); UREA NITROGEN, BLOOD 24 mg/dL (7-18)
[2019-02-09 06:31] LABS: MAGNESIUM 1.8 mg/dL (1.8-2.4); PHOSPHORUS 2.7 mg/dL (2.5-4.9)
--- NOTE | 2019-02-09 06:40 | NUR ---
DR. ACE UPDATED OF PATIENT'S CONDITION AND URINE OUTPUT. WILL CONTINUE TO MONITOR.
[2019-02-09] MEDS: BUDESONIDE 0.25 MG/2 ML NEBU INH SCH ×2 (07:06→19:18)
--- NOTE | 2019-02-09 07:12 | NUR ---
RECEIVED INTUBATED PT WITH A 7.5 ETT SECURED @21 TEETH/GUMS ON VENT. SETTINGS AC 16, VT 450, PEEP 5 AND FIO2 35%. ETT IS SECURE WITH ANCHOR FAST DEVICE, AIRWAY IS PATENT. PT HAS ACTIVE GAG REFLEX. PT SUCTIONED OBTAINED BLOOD TINGED/YELLOW SECRETIONS. VENT IS PLUGGED INTO A RED OUTLET WITH ALARMS ON AND FUNCTIONING. THERE IS NO BITING OR KINKING OF ETT. WILL CONTINUE TO MONITOR
--- NOTE | 2019-02-09 07:20 | NUR ---
REPORT GIVEN TO ERIKA ARGUELLO RN.
--- NOTE | 2019-02-09 07:21 | NUR ---
OBTAINED REPORT FROM FULLERETTE NURSE AT BEDSIDE, PT IS SEDATED RASS -3, VSS, FLACC 0, ETT TO VENT WITH FIO2 35, TV 450, R 16, PEEP 5, NO S/S OF DISTRESS, CLEAR LUNG SOUNDS, O2 SAT 99%, A-FIB ON FAGOT HEATER HELPER, LARGE ROUND ABDOMEN WITH ACTIVE BOWEL SOUNDS, OGT IN PLACE, FEEDING WITH VITAL AT 10 ML/HR, 0 ML RESIDUALS AT THIS TIME, YIN CATHETER IN PLACE WITH CLEAR YELLOW URINE VIA GRAVITY, GENERALIZED WEAKNESS TO ALL EXTREMITIES, SKIN IS INTACT, WARM AND DRY TO TOUCH, MID LINE TO MARY, PATENT, RUNNING VERSED AT 5MG/HR, FENTANYL AT 15 MCG/HR, AND 1/2NS AT 50ML/HR, HOB ELEVATED 30 DEGREES, SAFETY MEASURES IN PLACE, WILL CONTINUE TO MONITOR.
[2019-02-09] MEDS: SOTALOL 80 MG TAB PO SCH ×2 (08:09→20:14)
[2019-02-09] MEDS: LISINOPRIL 10 MG TAB PO SCH (08:10)
[2019-02-09] MEDS: hydrALAZINE 10 MG TAB PO SCH ×3 (08:10→16:54)
[2019-02-09] MEDS: amLODIPine 5 MG TAB PO SCH (08:10)
--- NOTE | 2019-02-09 08:15 | NUR ---
ORAL CARE PROVIDED, POSITION CHANGED FOR OFF LOAD PRESSURE.
--- NOTE | 2019-02-09 09:15 | NUR ---
MEDICATION GIVEN VIA OGT, PT TOLERATED WELL.
[2019-02-09] MEDS ORDERED: PANTOPRAZOLE 40 MG INJ VIAL IVP SCH (09:47)
--- NOTE | 2019-02-09 10:00 | NUR ---
NO CHANGE OF CONDITION AT THIS TIME, NO S/S OF DISTRESS, VSS, FLACC 0, POSITION CHANGED FOR OFF LOAD PRESSURE.
[2019-02-09 10:05] LABS: PROTHROMBIN TIME 29.8 secs (10.8-13.4)
--- NOTE | 2019-02-09 11:18 | NUR ---
DR. CANCHOLA CAME IN TO SEE PT AT BEDSIDE, WILL FOLLOW UP WITH NEW ORDERS.
--- NOTE | 2019-02-09 12:00 | NUR ---
NO S/S OF DISTRESS, VSS, FLACC 0, ORAL CARE PROVIDED, POSITION CHANGED FOR OFF LOAD PRESSURE.
--- NOTE | 2019-02-09 13:04 | NUR ---
FIO2 TITRATED TO 30%. PT NOT IN ANY DISTRESS AT THIS TIME. WILL CONTINUE TO MONITOR.
--- NOTE | 2019-02-09 14:00 | NUR ---
NO CHANGE OF CONDITION, POSITION CHANGED FOR OFF LOAD PRESSURE.
--- NOTE | 2019-02-09 14:21 | NUR ---
SPOKE TO [facility] REGARDING PT'S TRANSFER INFORMATION, THEY SAID NORMALLY THEY WILL CALL US, SO JUST WAIT FOR THE CALL, ALSO PROVIDED A NUMBER TO CALL IF NEEDED, .
[2019-02-09] MEDS: MIDAZOLAM MDV 50 MG in NACL 0.9% 40 ML IV PRN (15:21)
--- NOTE | 2019-02-09 16:00 | NUR ---
NO CHANGE OF CONDITION AT THIS TIME, VSS, FLACC 0, PM CARE AND F/C CARE PROVIDED, ORAL CARE PROVIDED, POSITION CHANGED FOR OFF LOAD PRESSURE.
--- NOTE | 2019-02-09 17:15 | NUR ---
PT SUCTIONED OBTAINED SMALL AMOUNT OF THICK SECRETIONS, AIRWAY IS PATENT AND ETT IS SECURE. VENT ALARMS ON AND FUNCTIONING. PT IS NOT IN ANY DISTRESS AT THIS TIME.
[2019-02-09 17:41] LABS: ALBUMIN 2.2 g/dL (3.4-5.0); BILIRUBIN,DIRECT 0.2 mg/dL (0.0-0.3); TOTAL BILIRUBIN 0.6 mg/dL (0.0-1.0)
--- NOTE | 2019-02-09 18:00 | NUR ---
NO CHANGE OF CONDITION AT THIS TIME, VSS, FLACC 0, POSITION CHANGED FOR OFF LOAD PRESSURE.
--- NOTE | 2019-02-09 19:12 | NUR ---
REPORT GIVEN TO AGENT CONTRACT CLERK NURSE FOR CONTINUE OF CARE, PT IS IN STABLE CONDITION AT THIS TIME.
--- NOTE | 2019-02-09 19:14 | NUR ---
REPORT RECEIVED FROM AM SHIFT. PT SEDATED. RASS -3. MODERATE SEDATION. PERRL 3MM. AFEBRILE. ETT TO VENT. 7.5 TAPED AT 22. VENT SETTINGS FIO2 30 VT 450 RATE 16 PEEP 5. LUNG SOUNDS CLEAR BILAT. A FIB ON MONITOR. NO EDEMA. PERIPHERAL PULSES PRESENT 2+ BUE/BLE. BOWEL SOUNDS ACTIVE X 4 QUADS. ON OGT FEEDING VITAL AF. 10ML WITH 50ML H20 FLUSH Q4H. ABD SOFT NONTENDER. BLADDER NONDISTEDED. F/C IN PLACE. URINE CLEAR YELLOW. NO FOUL ODOR. SKIN INTACT. MARY MIDLINE IV. ON FENTANYL DRIP 15MCG AND VERSED 3MG. DRESSING PATENT. BED IN LOWEST POSITION. HOB 30. WILL CONTINUE TO MONITOR
[2019-02-09] MEDS: LATANOPROST 0.005% OP 2.5 ML BTL BOTH EYES SCH (20:14)
[2019-02-09] MEDS: ATORVASTATIN 20 MG TAB PO SCH (20:14)
--- NOTE | 2019-02-09 20:19 | NUR ---
PT TURNED AND REPOSITIONED AT THIS TIME. VAP ORAL CARE PROVIDED AT THIS TIME
[2019-02-09] MEDS: fentaNYL 1 MG in NACL 0.9% 80 ML IV PRN (22:12)
--- NOTE | 2019-02-09 22:20 | NUR ---
PT SEDATED. RASS -3 MAINTAINED. WILL CONTINUE TO MONITOR.
--- NOTE | 2019-02-09 23:14 | NUR ---
INCREASED FEEDING MY 10ML. CURRENTLY RUNNING FEED 20ML/HR.
[2019-02-10] VITALS (108 sets, daily range): BP systolic 94–147; BP diastolic 42–93
[2019-02-10] MEDS: NACL 0.45% 1,000 ML IV SCH ×2 (01:10→21:10)
--- NOTE | 2019-02-10 03:16 | NUR ---
PT AFEBRILE. NO SIGNS OF ACUTE DISTRESS AT THIS TIME. RASS -3. BED IN LOWEST POSITION. HOB 30. WILL CONTINUE TO MONITOR.
[2019-02-10] MEDS: ALBUTEROL SULFATE/IPRATROPIU 3 ML SOL IH SCH ×6 (03:25→22:52)
[2019-02-10] MEDS: PIPER/TAZO 3.375GM/D5W PREMIX 50 ML IV SCH ×3 (05:05→21:01)
--- NOTE | 2019-02-10 05:38 | NUR ---
AM CARE PROVIDED AT THIS TIME
[2019-02-10 06:05] LABS: ANION GAP 12.6 (8-16); CARBON DIOXIDE 27.1 mmol/L (21-32); CHLORIDE 108 mmol/L (98-107); CREATININE 1.2 mg/dL (0.6-1.3); GLUCOSE 143 mg/dL (74-106); POTASSIUM 3.7 mmol/L (3.5-5.1); SODIUM SERUM 144 mmol/L (136-145); UREA NITROGEN, BLOOD 24 mg/dL (7-18)
[2019-02-10 06:08] LABS: MAGNESIUM 1.8 mg/dL (1.8-2.4); PHOSPHORUS 3.4 mg/dL (2.5-4.9)
[2019-02-10 06:36] LABS: BASOPHILS % (AUTO) 0.5 % (0.0-2.0); EOSINOPHILS # (AUTO) 0.1 K/uL (0-0.4); EOSINOPHILS % (AUTO) 0.9 % (0.0-4.0); HEMATOCRIT 25.6 % (36-48); HEMOGLOBIN 8.3 g/dL (12.0-16.0); LYMPHOCYTES # (AUTO) 1.7 K/uL (2.5-16.5); LYMPHOCYTES % (AUTO) 22.5 % (20.5-51.1); MEAN CORPUSCULAR HEMOGLOBIN 26 pg (27-31); MEAN CORPUSCULAR HGB CONC 32 g/dL (33-37); MEAN CORPUSCULAR VOLUME 81.2 fL (80-94); MONOCYTES # (AUTO) 0.6 K/uL (0.8-1.0); MONOCYTES % (AUTO) 8.1 % (1.7-9.3); NEUTROPHILS # (AUTO) 5.1 K/uL (1.8-7.7); PLATELET COUNT (AUTO) 238 K/uL (140-450); RED BLOOD CELL COUNT(AUTO) 3.16 MIL/uL (4.20-5.40); WHITE BLOOD COUNT (AUTO) 7.5 K/uL (4.8-10.8)
--- NOTE | 2019-02-10 07:10 | NUR ---
ENDORSED CARE TO INCOMING SHIFT FOR CONTINUITY OF CARE
--- NOTE | 2019-02-10 07:11 | NUR ---
OBTAINED REPORT FROM INDUSTRIAL RELATIONS OFFICER NURSE AT BEDSIDE, PT IS SEDATED RASS -3, VSS, FLACC 0, ETT TO VENT WITH FIO2 30, TV 450, R 16, PEEP 5, NO S/S OF DISTRESS, CLEAR LUNG SOUNDS, O2 SAT 99%, A-FIB ON VICE PRESIDENT CORPORATE COMMUNICATIONS, LARGE ROUND ABDOMEN WITH ACTIVE BOWEL SOUNDS, OGT IN PLACE, FEEDING WITH VITAL AT 30 ML/HR, 0 ML RESIDUALS, YIN CATHETER IN PLACE WITH CLEAR YELLOW URINE VIA GRAVITY, GENERALIZED WEAKNESS TO ALL EXTREMITIES, SKIN IS INTACT, WARM AND DRY TO TOUCH, MID LINE TO MARY, PATENT, RUNNING VERSED AT 3MG/HR, FENTANYL AT 15 MCG/HR, AND 1/2NS AT 50ML/HR, SCD IN PLACE, HOB ELEVATED 30 DEGREES, ORAL CARE PROVIDED, POSITION CHANGED FOR OFF LOAD PRESSURE, SAFETY MEASURES IN PLACE, WILL CONTINUE TO MONITOR.
[2019-02-10] MEDS: BUDESONIDE 0.25 MG/2 ML NEBU INH SCH ×2 (07:17→19:32)
--- NOTE | 2019-02-10 07:25 | NUR ---
RECEIVED INTUBATED PT WITH A 7.5 ETT SECURED @21 TEETH/GUMS ON VENT. SETTINGS AC 16, VT 450, PEEP 5 AND FIO2 30%. ETT IS SECURE WITH ANCHOR FAST DEVICE, AIRWAY IS PATENT. PT HAS ACTIVE GAG REFLEX. PT SUCTIONED YELLOW SECRETIONS. VENT IS PLUGGED INTO A RED OUTLET WITH ALARMS ON AND FUNCTIONING. THERE IS NO BITING OR KINKING OF ETT. WILL CONTINUE TO MONITOR
[2019-02-10] MEDS ORDERED: FERROUS GLUCONATE 324 MG TAB NG SCH (08:00)
[2019-02-10] MEDS: hydrALAZINE 10 MG TAB PO SCH ×3 (08:28→17:06)
[2019-02-10] MEDS: SOTALOL 80 MG TAB PO SCH ×2 (08:28→21:02)
[2019-02-10] MEDS: LISINOPRIL 10 MG TAB PO SCH (08:28)
[2019-02-10] MEDS: amLODIPine 5 MG TAB PO SCH (08:28)
[2019-02-10] MEDS: MIDAZOLAM MDV 50 MG in NACL 0.9% 40 ML IV PRN (08:31)
[2019-02-10] MEDS ORDERED: PANTOPRAZOLE 40 MG INJ VIAL IVP SCH (09:00)
--- NOTE | 2019-02-10 10:00 | NUR ---
NO CHANGE OF CONDITION, VSS, FLACC 0, RASS -3, POSITION CHANGED FOR OFF LOAD PRESSURE.
[2019-02-10] MEDS ORDERED: DEXTROSE 50% 50 ML SYR IVP PRN (11:35)
[2019-02-10] MEDS ORDERED: MIDAZOLAM MDV 100 MG in NACL 0.9% 80 ML IV PRN (11:44)
--- NOTE | 2019-02-10 12:00 | NUR ---
NO S/S OF DISTRESS, VSS, FLACC 0, ORAL CARE PROVIDED, POSITION CHANGED FOR OFF LOAD PRESSURE.
--- NOTE | 2019-02-10 15:40 | NUR ---
02/10/19 RD FOLLOW UP COMPLETED PLEASE REFER TO NUTRITION ASSESSMENT UNDER CARE ACTIVITY FOR ESTIMATED NUTRITIONAL NEEDS. 1. RECOMMEND VITAL AT 60 ML/HR -THIS WILL PROVIDE A VOLUME OF 1440 ML, 1728 KCAL, 108 GM PROTEIN. IT WILL MEET 100% OF PT�S ENERGY AND PROTEIN NEEDS. 2. RECOMMEND FWF 90 ML Q6H OR PER MD 3. RD TO FOLLOW-UP 2-3 DAYS, HIGH RISK GRIS CARRERO RD
--- NOTE | 2019-02-10 15:59 | NUR ---
CALLED [facility] AND SPOKE WITH NEON TECHNICIAN ARY. I ASKED HER TO HAVE THE CM CALL ME. NO ONE FROM [facility] CALLED ME OR ICU TODAY.
--- NOTE | 2019-02-10 16:00 | NUR ---
PM CARE AND F/C CARE PROVIDED, ORAL CARE DONE, POSITION CHANGED FOR OFF LOAD PRESSURE.
--- NOTE | 2019-02-10 16:15 | NUR ---
DR. RODRIGEZ CAME IN TO SEE PT AT BEDSIDE, RT AT BEDSIDE WELL, STARTED SEDATION VACATION AT THIS TIME.
--- NOTE | 2019-02-10 16:45 | NUR ---
PT PLACED ON SBT AT 1615 BY . PHYSICIAN STATES TO LEAVE PT ON SBT FOR 30 MIN. CPAP 5 PS 12 FIO2 30%. VT BETWEEN 290-320 ml. MADE AWARE. PT PLACED BACK ON AC/VC 16, VT 450, PEEP 5 AND FIO2 30%. WILL CONTINUE TO MONITOR.
[2019-02-10] MEDS: BLOOD GLUCOSE MONITORING 1 DEV DEV FS SCH ×2 (16:49→21:04)
--- NOTE | 2019-02-10 16:58 | NUR ---
SPOKE TO [employer]OL PROGRAMMER, MARIELA REGARDING PT'S CONDITION, WILL WAITING FOR FURTHER INSTRUCTIONS.
[2019-02-10] MEDS: INSULIN LISPRO SLIDING SCALE 100 UNITS/ML VIAL SUBQ PRN ×2 (17:08→21:07)
--- NOTE | 2019-02-10 17:15 | NUR ---
PT IS WAKING UP WITH EYES OPEN, TRYING TO REMOVE TUBES, BACK ON SEDATION AT THIS TIME.
[2019-02-10] MEDS ORDERED: WARFARIN 2.5 MG TAB PO SCH (17:35)
--- NOTE | 2019-02-10 17:35 | NUR ---
PT REMAINS ON DOCUMENTED VENT SETTINGS. ETT REMAINS SECURE WITH A PATENT AIRWAY. PT NOT IN ANY DISTRESS AT THIS TIME. VENT ALARMS REMAIN ON AND FUNCTIONING.
--- NOTE | 2019-02-10 18:00 | NUR ---
NO CHANGE OF CONDITION, VSS, FLACC 0, POSITION CHANGED FOR OFF LOAD PRESSURE.
--- NOTE | 2019-02-10 19:10 | NUR ---
REPORT GIVEN TO QUALITY ASSURANCE INTERN FOR CONTINUE OF CARE, PT IS IN STABLE CONDITION AT THIS TIME.
--- NOTE | 2019-02-10 19:44 | NUR ---
Received pt stable on vent support at documented settings, suctioned scant amount of thin white secretions, hhn tx given, tolerated well, no resp distress or SOB noted at this time, 7.5 ETT secured at 22 cm, alarms set and audible, ambu bag bedside, vent plugged into red outlet, cont pulse ox on, will cont to monitor.
--- NOTE | 2019-02-10 19:57 | NUR ---
RECEIVED BSSR FROM JOS CONLEY FOR CONTINUITY OF CARE. ETT TO VENT WITH SETTINGS OF AC 16, TV 450, PEEP 5, AND FIO2 30%. BREATH SOUNDS ARE CLEAR TO AUSCULTATION. ACTIVE BOWEL SOUNDS. OGT IN PLACE WITH PATIENT RECEIVING VITAL AT GOAL RATE OF 40 ML/HR. THERE IS A DOUBLE LUMEN MIDLINE IN PLACE WITH PATIENT RECEIVING FENTANYL 15 MG/HR, VERSED 2 MG/HR, 1/2NS AT 50 ML/HR. SITE IS CDI. YIN IN PLACE DRAINING TO GRAVITY. SCDS IN PLACE FOR VTE PROTOCOL. PATIENT AFEBRILE AND VS WNL. INITIAL ASSESSMENT COMPLETED. HOB AT 30 DEGREES WITH BED NI LOWEST POSITION.
--- NOTE | 2019-02-10 20:01 | NUR ---
THOM FROM [facility] CALLED TO GATHER INFORMATION TO TRANSFER PATIENT TO [facility]. PATIENT IS ACCEPTED BY DR. Bridget BRITT AND WILL GO TO ROOM 231. THOM STATED TO GIVE REPORT TO PARMJIT CONLEY AT . Addendum: 02/10/19 at 2055 by Francisco J Dawn RN [facility] EN[employer]TAINER NAME IS SLAVA OROZCO.
--- NOTE | 2019-02-10 20:29 | NUR ---
CALLED AND SPOKE WITH [facility] YAEL PARNELL AT [phone] TO GIVE REPORT. PARMJIT CONLEY STATED THAT HE IS GETTING ANOTHER ICU ASSIGNMENT AND IS WORKING WITH HIS TEA BAG MACHINE TENDER AND GYROSCOPIC INSTRUMENT MECHANIC REGARDING PATIENT ASSIGNMENT. PARMJIT CONLEY STATED TO CALL BACK IN TEN MINUTES.
--- NOTE | 2019-02-10 20:53 | NUR ---
REPORT GIVEN TO MANOHAR CONLEY. ALL QUESTIONS AND CONCERNS ADDRESSED. ESTIMATED TIME OF PICKUP IS 2214.
--- NOTE | 2019-02-10 20:55 | NUR ---
[facility] [employer] ERNESTO CALLED AND GAVE NEW ETA PICKUP. 0045 IS THE NEW PICKUP TIME.
[2019-02-10] MEDS: ATORVASTATIN 20 MG TAB PO SCH (21:02)
[2019-02-10] MEDS: LATANOPROST 0.005% OP 2.5 ML BTL BOTH EYES SCH (21:04)
--- NOTE | 2019-02-10 21:20 | NUR ---
TOLERATED DUE MEDICATIONS. VAP ORAL CARE RENDERED WITH PERIDEX RINSE. REPOSITIONED FOR COMFORT. HOB AT 30 DEGREES WITH BED IN LOWEST POSITION. CONTINUE TO MONITOR PATIENT.
--- NOTE | 2019-02-10 21:28 | NUR ---
CALLED AND SPOKE TO PATIENT'S SON ANABELA KIM AT [phone] TO INFORM HIM THAT PATIENT WILL BE TRANSFERRING TO [facility] WITH ETA PICKUP OF [id number].
--- NOTE | 2019-02-10 21:45 | NUR ---
GAUGE AND WEIGH MACHINE OPERATOR AT BEDSIDE FOR CXR.
[2019-02-10] MEDS ORDERED: WARF2.5T77 PO (22:39)
--- NOTE | 2019-02-10 23:58 | NUR ---
VAP CARE RENDERED. GAG REFLEX NOTED. REPOSITIONED FOR COMFORT. URINE OUTPUT OF 200ML OF LIGHT DUKE COLORED URINE. HOB AT 30 DEGREES WITH BED IN LOWEST POSITION.
[2019-02-11] VITALS (13 sets, daily range): BP systolic 115–139; BP diastolic 63–83
[2019-02-11] MEDS: NACL 0.45% 1,000 ML IV SCH (00:10)
--- NOTE | 2019-02-11 00:55 | NUR ---
VSS. BREATHING EVEN AND UNLABORED. HOB AT 30 DEGREES WITH BED IN LOWEST POSITION. CONTINUE TO MONITOR PATIENT.
--- NOTE | 2019-02-11 01:29 | NUR ---
REPOSITION PATIENT FOR COMFORT. VSS. FLUSHED OGT WITH 30ML OF STERILE WATER.
--- NOTE | 2019-02-11 01:53 | NUR ---
CALLED MANOHAR CONLEY AT [facility] AT [phone]. ASKED MANOHAR CONLEY FOR [employer] PHONE NUMBER SINCE ETA PICKUP FOR PATIENT WAS SCHEDULED FOR 44 AND CCT HAS NOT ARRIVED. MANOHAR CONLEY SAID SHE WILL SPEAK WITH HER CONTROL PANEL ASSEMBLER TO FIND OUT WHAT THE PHONE NUMBER IS. CONTROL PANEL ASSEMBLER MADE AWARE.
--- NOTE | 2019-02-11 02:05 | NUR ---
MANOHAR CONLEY FROM [facility] CALLED. SHE INFORMED ME THAT SHE SPOKE TO THEIR COORDINATOR. NEW ETA FOR PICKUP IS 0230. LOG RAFTER MADE AWARE.
--- NOTE | 2019-02-11 02:35 | NUR ---
[facility] ON UNIT TO TRANSPORT PATIENT TO [facility]. REPORT GIVEN TO CCT RN VICTOR HUGO.
--- NOTE | 2019-02-11 03:10 | NUR ---
VSS. PATIENT TRANSFERRED OFF UNIT BY [facility] ON ROUTE TO [facility].
[2019-02-11] MEDS ORDERED: FUROSEMIDE 40 MG/4 ML VIAL IVP SCH (09:00)
[2019-02-11] MEDS ORDERED: WARFARIN 2.5 MG TAB PO SCH (17:00)
[2019-02-12 21:54] LABS: FERRITIN 427 ng/mL (15-150)
[2019-02-12 21:58] LABS: TRANSFERRIN 154 mg/dL (200-370)
== END 2019-02-11 03:10 | disposition short-term general hospital (02) | DRG 853 ==
LOC: MED 10:56 → UNDOADMIN 14:17 → MIC 14:17
PROVIDERS: ADMIT General Practice; ATTEND General Practice
PROC: 05HY33Z Insertion of Infusion Device into Upper Vein, Percutaneous Approach (ICD-10-PCS; 2019-02-06)
PROC: B54MZZA Ultrasonography of Right Upper Extremity Veins, Guidance (ICD-10-PCS; 2019-02-06)
PROC: 5A09357 Assistance with Respiratory Ventilation, Less than 24 Consecutive Hours, Continuous Positive Airway Pressure (ICD-10-PCS; 2019-02-06)
PROC: 5A1945Z Respiratory Ventilation, 24-96 Consecutive Hours (ICD-10-PCS; principal; 2019-02-07)
PROC: 0B9H8ZX Drainage of Lung Lingula, Via Natural or Artificial Opening Endoscopic, Diagnostic (ICD-10-PCS; 2019-02-07)
PROC: 0B9G8ZX Drainage of Left Upper Lung Lobe, Via Natural or Artificial Opening Endoscopic, Diagnostic (ICD-10-PCS; 2019-02-07)
PROC: 0B9D8ZX Drainage of Right Middle Lung Lobe, Via Natural or Artificial Opening Endoscopic, Diagnostic (ICD-10-PCS; 2019-02-07)
PROC: 0BH17EZ Insertion of Endotracheal Airway into Trachea, Via Natural or Artificial Opening (ICD-10-PCS; 2019-02-07)
DX: A41.9 Sepsis, unspecified organism (principal); J69.0 Pneumonitis due to inhalation of food and vomit; I50.43 Acute on chronic combined systolic (congestive) and diastolic (congestive) heart failure; N17.0 Acute kidney failure with tubular necrosis; E43 Unspecified severe protein-calorie malnutrition; J96.21 Acute and chronic respiratory failure with hypoxia; J96.22 Acute and chronic respiratory failure with hypercapnia; R65.21 Severe sepsis with septic shock; D68.9 Coagulation defect, unspecified; Z68.27 Body mass index [BMI] 27.0-27.9, adult; D63.8 Anemia in other chronic diseases classified elsewhere; E11.65 Type 2 diabetes mellitus with hyperglycemia; E66.01 Morbid (severe) obesity due to excess calories; E78.5 Hyperlipidemia, unspecified; H40.9 Unspecified glaucoma; I11.0 Hypertensive heart disease with heart failure; I25.10 Atherosclerotic heart disease of native coronary artery without angina pectoris; I48.91 Unspecified atrial fibrillation; J44.9 Chronic obstructive pulmonary disease, unspecified; D50.9 Iron deficiency anemia, unspecified; I73.9 Peripheral vascular disease, unspecified; R13.11 Dysphagia, oral phase; T45.515A Adverse effect of anticoagulants, initial encounter; Z86.73 Personal history of transient ischemic attack (TIA), and cerebral infarction without residual deficits; Z87.891 Personal history of nicotine dependence; Z90.710 Acquired absence of both cervix and uterus; Z95.1 Presence of aortocoronary bypass graft; Z95.2 Presence of prosthetic heart valve; Z88.5 Allergy status to narcotic agent; Z88.8 Allergy status to other drugs, medicaments and biological substances; Y92.89 Other specified places as the place of occurrence of the external cause
CPT/HCPCS: 31500; 36415; 36600; 71045; 74018; 76604; 80048; 80053; 80076; 80305; 81003; 82150; 82728; 82803; 82948; 83036; 83540; 83605; 83690; 83735; 83880; 84100; 84436; 84439; 84443; 84479; 84484; 85025; 85045; 85610; 85730; 87040; 87070; 87081; 87086; 87116; 87190; 87205; 87206; 89220; 93005; 93925; 93970; 94002; 94003; 94640; 94644; 94660; 96365; 96366; 96367; 99285; C1751; C9113; J1200; J1815; J1940; J2060; J2250; J2543; J3010; J3370; J3430; J7042; J7060; J7613; J7620; J7626; Q0092